=== PATIENT | male | born 1985 | race Two or more races ===

== ENCOUNTER 2018-04-15 16:24 | Emergency (ER) | payer SELFPAY ==
[~2018-04-15] VITALS: Ht 188 cm; Wt 97.5 kg
--- NOTE | 2018-04-15 16:43 | NUR ---
PT A/OX4, PRESENTS TO THE ER W/ A LAC OF APPROXIMATELY 2.25 IN ON L INDEX FINGER. VSS. PT DENIES C/P, SOB, N/V/D, DIZZINESS, HEADACHE.
[2018-04-15] MEDS ORDERED: TDAP DIPH,PERTUSS,TET VAC/PF 0.5 ML DISP.SYRIN IM ONE (16:47)
--- NOTE | 2018-04-15 16:50 | NUR ---
WOUND IRRIGATED W/ NS. DERMABOND APPLIED BY ILANA MCCLAIN.
--- NOTE | 2018-04-15 16:59 | NUR ---
Patient discharged to home in stable conditon. Written and verbal after care instructions given. Patient verbalizes understanding of instructions. ALL BELONGINGS W/ PT. PT SELF-AMBULATED W/O DIFFICULTY.
[2018-04-15] MEDS: TDAP DIPH,PERTUSS,TET VAC/PF 0.5 ML DISP.SYRIN IM ONE (17:00)
[2018-04-15 17:02] VITALS: BP 112/66
== END 2018-04-15 17:02 | disposition home or self-care (01) ==
LOC: ER 16:26
DX: S61.211A Laceration without foreign body of left index finger without damage to nail, initial encounter (principal); W26.8XXA Contact with other sharp object(s), not elsewhere classified, initial encounter; Y93.89 Activity, other specified; Y92.89 Other specified places as the place of occurrence of the external cause; Y99.8 Other external cause status
CPT/HCPCS: 90715; A4663